=== PATIENT | female | born 1960 ===

== ENCOUNTER 2020-09-01 10:00 | Outpatient (REF) | payer OTHER, SELFPAY ==
[2020-09-01 12:45] LABS: MANUAL DIFF FLAG NO
[2020-09-01 12:51] LABS: Basophils Absolute Auto 0.1 X10*3/uL (0.0-0.2); Basophils Percent Auto 0.4 % (0-2); Eosinophils Absolute Auto 0.2 X10*3/uL (0.0-0.4); Eosinophils Percent Auto 1.7 % (0-4); Hematocrit 48.3 % (37-47); Hemoglobin 16.2 g/dl (12.0-16.0); Imm Gran Abs Auto 0.07 X10*3/uL (0.00-0.03); Imm Gran Pct Auto 0.6 % (0.0-0.4); Lymphocytes Absolute Auto 3.8 X10*3/uL (1.2-4.9); Lymphocytes Percent Auto 33.6 % (20-40); Mean Corpuscular HGB Conc 33.5 g/dl (31.0-35.0); Mean Corpuscular Hemoglobin 30.1 pg (27.0-33.0); Mean Corpuscular Volume 89.8 fL (80-98); Mean Platelet Volume 9.3 fL (9.4-12.3); Monocytes Absolute Auto 0.7 X10*3/uL (0.1-1.2); Monocytes Percent Auto 6.5 % (2-11); Neutrophils Absolute Auto 6.4 X10*3/uL (2.0-8.3); Neutrophils Percent Auto 57.2 % (45-73); Platelet Count 484 X10*3/uL (160-400); Red Blood Count 5.38 X10*6/uL (4.20-5.50); Red Cell Distribution Width 14.4 % (11.0-16.0); White Blood Count 11.2 X10*3/uL (4.8-10.8)
[2020-09-01 13:18] LABS: Alanine Aminotransferase 11 U/L (0-31); Albumin Level 4.5 g/dL (3.5-5.0); Alkaline Phosphatase 141 U/L (39-117); Anion Gap 14 (12-20); Aspartate Amino Transferase 18 U/L (5-31); Bilirubin Total 0.2 mg/dL (0.0-1.0); Blood Urea Nitrogen 21 mg/dL (9-16); Calcium 10.1 mg/dL (8.4-10.2); Carbon Dioxide 24 mmol/L (22-29); Chloride 106 mmol/L (96-108); Estimated Glomerular Filt Rate > 60; Glucose Random 67 mg/dL (60-115); Potassium 5.2 mmol/L (3.3-5.1); Sodium 139 mmol/L (135-145); Total Protein 7.6 g/dL (6.5-8.0)
== END 2020-09-01 10:01 | disposition home or self-care (01) ==
LOC: HO.LAB 10:00
PROVIDERS: PCP Psychiatry & Neurology Neurology; Visit Provider Anesthesiology
DX: M96.1 Postlaminectomy syndrome, not elsewhere classified (principal); M46.1 Sacroiliitis, not elsewhere classified; M53.3 Sacrococcygeal disorders, not elsewhere classified; G89.4 Chronic pain syndrome; D64.9 Anemia, unspecified; N28.9 Disorder of kidney and ureter, unspecified; Z79.899 Other long term (current) drug therapy
CPT/HCPCS: 36415; 80053; 85025; 99202

== ENCOUNTER 2021-01-23 15:18 | Outpatient (REF) | payer OTHER, SELFPAY | END 2021-01-23 15:19 | disposition home or self-care (01) | LOC: HO.LAB 15:18 | PROVIDERS: Visit Provider Family Medicine | DX: R19.5 Other fecal abnormalities (principal); Z20.822 Contact with and (suspected) exposure to COVID-19 | CPT/HCPCS: U0003; U0005 ==

== ENCOUNTER 2021-07-20 12:58 | Outpatient (REF) | payer OTHER, SELFPAY ==
[2021-07-20 13:33] LABS: MANUAL DIFF FLAG NO
[2021-07-20 13:36] LABS: Basophils Percent Auto 0.5 % (0-2); Eosinophils Absolute Auto 0.2 X10*3/uL (0.0-0.4); Hematocrit 44.9 % (37.0-47.0); Hemoglobin 14.6 g/dl (12.0-16.0); Imm Gran Abs Auto 0.04 X10*3/uL (0.00-0.03); Imm Gran Pct Auto 0.5 % (0.0-0.4); Lymphocytes Absolute Auto 2.7 X10*3/uL (1.2-4.9); Lymphocytes Percent Auto 30.2 % (20-40); Mean Corpuscular HGB Conc 32.5 g/dl (31.0-35.0); Mean Corpuscular Hemoglobin 29.4 pg (27.0-33.0); Mean Corpuscular Volume 90.3 fL (80.0-98.0); Mean Platelet Volume 9.4 fL (9.4-12.3); Monocytes Absolute Auto 0.7 X10*3/uL (0.1-1.2); Monocytes Percent Auto 8.3 % (2-11); Neutrophils Absolute Auto 5.2 x10*3/uL (2.0-8.3); Neutrophils Percent Auto 58.5 % (45-73); Platelet Count 367 X10*3/uL (160-400); Red Blood Count 4.97 X10*6/uL (4.20-5.50); Red Cell Distribution Width 14.5 % (11.0-16.0); White Blood Count 8.8 X10*3/uL (4.8-10.8)
[2021-07-20 14:43] LABS: Alanine Aminotransferase 26 U/L (0-31); Albumin Level 4.3 g/dL (3.5-5.0); Alkaline Phosphatase 129 U/L (39-117); Anion Gap 15 (12-20); Aspartate Amino Transferase 24 U/L (5-31); Bilirubin Total 0.5 mg/dL (0.0-1.0); Blood Urea Nitrogen 13 mg/dL (9-16); Calcium 9.8 mg/dL (8.4-10.2); Carbon Dioxide 24 mmol/L (22-29); Chloride 106 mmol/L (96-108); Estimated Glomerular Filt Rate > 60; Glucose Random 85 mg/dL (60-115); Lipase 9 U/L (8-78); Potassium 4.7 mmol/L (3.3-5.1); Sodium 140 mmol/L (135-145); Total Protein 7.6 g/dL (6.5-8.0)
[2021-07-20 15:03] LABS: TSH reflex Free T4 1.27 uIU/mL (0.32-4.0)
== END 2021-07-20 12:59 | disposition home or self-care (01) ==
LOC: HO.WFDLDS 12:58
PROVIDERS: Visit Provider Family Medicine
DX: Z00.00 Encounter for general adult medical examination without abnormal findings (principal); M54.9 Dorsalgia, unspecified
CPT/HCPCS: 36415; 80053; 83690; 84443; 85025

== ENCOUNTER 2022-12-06 16:18 | Outpatient (AMB) | payer OTHER, SELFPAY ==
[2022-12-06 16:24] VITALS: BP 128/76; PULSE 113; RESP 12; TEMP 36.5; O2SAT 98; BMI 31.1
--- NOTE | 2022-12-06 16:24 | A.OFFPC_ITS ---
Vital Signs 12/06/22 16:24 Height 5 ft 1 in Weight 164 lb 7 oz BMI 31.1 BP 128/76 Blood Pressure Location Lt brachial Position Sitting Respiration 12 Pulse 113 H Pulse Source Pulse Oximeter Temp 97.7 F Temp Source Temporal Artery Scan Pulse Oximetry (%) 98 Oxygen Delivery Method Room Air Intake Visit Reasons: Follow up labs Intake Note: Patient has very limited range of motion due to 2 herniated disks in back. Patient would like something prescribed for her pain. Patient seeing Neuro on 02/01/23. Patient is also followed by Ortho where a scooter was ordered. Electronic Equipment Repairer Required: No Accompanied by: Self / Same As Patient Allergies ketorolac [From Toradol] Allergy (Verified 12/06/22 17:01) unknown meperidine [From Demerol] Allergy (Verified 12/06/22 17:01) unknown penicillin G Allergy (Verified 12/06/22 17:01) Unknown pseudoephedrine [From Sudafed] Allergy (Verified 12/06/22 17:01) unknown tramadol Allergy (Verified 12/06/22 17:01) unknown Medication List - Last Reconciled 12/06/22 by Magalis Burns, IRVING albuterol sulfate 90 mcg/actuation (ProAir HFA) 2 puffs inhalation Q4-6H PRN 30 days cyclobenzaprine 5 mg PO BID PRN 14 days famotidine 40 mg PO DAILY 90 days gabapentin 0 mg PO ipratropium-albuterol 20-100 mcg/actuation (Combivent Respimat) 1 puff inhalation Q6H 30 days levetiracetam (Keppra) 500 mg PO DAILY lorazepam 1 mg PO DAILY PRN omeprazole 40 mg PO DAILY 90 days zinc oxide 13% (Desitin Rapid Relief) 1 appl topical BID-QID PRN 30 days Tobacco use date assessed: 01/06/22 Dental Screening Dental Screen Date: 12/06/22 HPI HPI Comments History of Present Illness Details 62 y/o female presents with c/o chronic lower back pain and right hip pain which radiates to her RLE. She notes that her symptoms worsened after she fell in her bath tub in June,. She states she has been taking Tylenol, NSAIDs, and other OTC remedies without relief. She reports adverse GI symptoms to NSAIDs, including bloating, nausea, and vomiting. She reports h/o of PT and notes she cannot currently do PT d/t severe pain. She notes she has an appointment with a neurosurgeon an [facility] in January. She states she is followed by an orthopedic surgeon at [facility]; her last visit was last month, and she was referred to neurosurgery She notes she is on Gabapentin 300 mg twice daily for RLS. She reports h/o neck, back, right knee, and bilat shoulder surgeries. COUNTS INCLUDE 234 BEDS AT THE [facility] Medical History Chronic pain syndrome Sacroiliac joint dysfunction of left side Sacroiliitis Postlaminectomy syndrome, lumbar Postlaminectomy syndrome, cervical Renal insufficiency Anemia Surgical History Hx of fusion of cervical spine History of knee surgery History of elbow surgery History of shoulder surgery History of carpal tunnel surgery of right wrist History of carpal tunnel surgery of left wrist History of back surgery Family History Sister Kidney stones Hypertension Renal failure Social History Housing: Apartment Patient Tobacco Use Status: Current everyday Tobacco user e-Cigarette/Vaping Use: Never Used Second Hand Smoke Exposure: No service: No Current occupational status: retired Current occupational exposures/hazards: No Cognitive needs: No Hearing needs: No Vision needs: No Questionnaire ISRAEL-7 AMB Questionnaire ISRAEL-7 Date ISRAEL - 7 assessed: 01/06/22 Source: Developed by Drs. Bam Rose, Kori Love, Davey Solis and colleagues, with an educational marianela from [employer]. Review of Systems Const Details: Const Denies chills, Denies fatigue, Denies fever(s), Denies headache(s) and Denies weakness ENT Denies dizziness and Denies headache(s) Card Denies chest pain, Denies lightheadedness, Denies dyspnea and Denies other (Palpitations) Resp Denies cough, Denies dyspnea, Denies wheezing and Denies other ( shortness of breath) GI Denies abdominal pain, Denies melena, Denies hematochezia, Denies change in bowel habits, Denies dyspepsia and Denies nausea Denies hematuria and Denies dysuria Musc Reports back and right hip pain, Reports abnormal gait, Denies numbness and Denies tingling Skin/Breast Denies rash, Denies unusual bruising and Denies wounds Neuro Reports abnormal gait, Denies dizziness, Denies headache(s), Denies memory loss, Denies numbness, Denies Sensory deficit (Neuro), Denies tingling and Denies weakness Psych Denies anxiety, Denies depression, Denies memory loss Endo Denies cold intolerance, Denies fatigue, Denies heat intolerance, Denies polydipsia and Denies polyuria Aller/Immun Denies wheezing Physical exam (Primary Care) Vital Signs: Last Vital Signs Temp 97.7 F 12/06/22 16:24 Pulse 113 H 12/06/22 16:24 Resp 12 12/06/22 16:24 BP 128/76 12/06/22 16:24 Pulse Ox 98 12/06/22 16:24 Oxygen Delivery Method Room Air 12/06/22 16:24 BMI result Body Mass Index 31.1 Tobacco/Smoking Status: Tobacco use Status Tobacco use date assessed 01/06/22 12/06/22 16:24 Patient Tobacco Use Status Current everyday Tobacco 12/06/22 16:24 e-Cigarette/Vaping Use Never Used 12/06/22 16:24 Const Other: General: no acute distress and well developed Nutritional Appearance: well nourished Orientation/consciousness: patient oriented x3 HENMT Head: Yes normocephalic and Yes atraumatic Eyes General: appearance normal, both eyes and all related structures Pupils: Equal, round and reactive pupils present EOM: EOMs intact bilaterally Resp Effort & Inspection: normal respiratory effort Auscultation: clear to auscultation bilaterally Cardio Rate: regular rate Rhythm: regular rhythm Heart sounds: S1 normal heart sound present, S2 normal heart sound present, no gallops, no murmurs and no rubs GI Palpation (GI): No Abdominal aortic bruit present, Soft to palpation, nontender, No hepatosplenomegaly present and No Rebound tenderness present Auscultation: normal bowel sounds General: Yes no CVA tenderness Back/Spine/Pelvis Back: no CVA tenderness Cervical Spine: cervical ROM normal and No Cervical spine tenderness Thoracic/Lumbar Spine: thoraco-lumbar ROM normal, pain with thoraco-lumbar ROM, thoracic spinal tenderness andlumbar spinal tenderness Extrem General: Yes normal to inspection, No edema and No calf tendernes Positive right straight leg raise Skin General: warm and dry. Normal skin color. Normal skin turgor Lesions: no lesions Rashes: no rashes Trauma: no lacerations or abrasions Wounds: no wounds Nails: normal Neuro General: patient oriented x3, unsteady gait and no focal neuro deficit Cranial nerves: Yes Equal, round and reactive pupils present Cognition (Neuro): normal cognition Gait exam (Neuro): Normal gait present Sensory Exam: No Sensory deficit (Neuro) Psych Appearance: grossly normal Affect: normal affect Attitude: cooperative Thought process: Normal thought process present Assessment and Plan Assessment & Plan (1) Chronic pain syndrome: Code(s): G89.4 - Chronic pain syndrome Plan: Reports chronic lower back pain and right hip pain which radiates to her RLE. She notes that her symptoms worsened after she fell in her bath tub in June, Thoracic and lumbar spine tenderness Positive right straight leg raise Gait is unsteady Review of recent x-ray of the hip from [facility] revealed worsening arthritic changes of the head and recent MRI revealed significant degenerative changes low L3 to L4 Prednisone ordered. Take as prescribed Declines gabapentin dose increased to 600 mg twice a day for possible sciatica The use of cane or walker recommended for ambulation. She declines an order assistive devices and notes she would not use them Advised to continue to follow-up with orthopedic as planned Follow-up with Neurosurgery as scheduled Follow-up with PCP in 2-4 weeks or return sooner with worsening or new symptoms She verbalized understanding and agreed with treatment plan. Medications: New prednisone 20 mg PO DAILY 5 days 5 tabs 0RF Changed From levetiracetam (Keppra) 500 mg PO Q12H 60 tabs 4RF G40.909 - Epilepsy, unspecified, not intractable, without status epilepticus To levetiracetam (Keppra) 500 mg PO DAILY G40.909 - Epilepsy, unspecified, not intractable, without status epilepticus Discontinued cyclobenzaprine Discontinued Reason: Doctor's Order 5 mg PO BID 14 days PRN 28 tabs 0RF muscle spasm M54.9 - Dorsalgia, unspecified Coding Level of Care Code Est Pt Level 3 (65235) Diagnoses Chronic pain syndrome G89.4
== END 2022-12-06 17:32 | disposition home or self-care (01) ==
PROVIDERS: PCP Family Medicine; Visit Provider Nurse Practitioner Family
DX: G89.4 Chronic pain syndrome (principal)
CPT/HCPCS: 99214

== ENCOUNTER 2024-12-03 13:38 | Outpatient (REF) | payer MEDICAID, SELFPAY ==
--- NOTE | ~2024-12-03 | MM_ITS ---
EXAMINATION(S): 1. MM DIAGNOSTIC DIGITAL BREAST TOMOSYNTHESIS, BILATERAL 2. Targeted ultrasound of the left breast CLINICAL INFORMATION: Left breast lump in the lower inner quadrant COMPARISON: None. This is a baseline study. TECHNIQUE: Digital breast tomosynthesis is performed in both the mediolateral oblique and craniocaudal views along with computer-aided detection (CAD). Synthesized 2D images are generated from the tomosynthesis. FINDINGS: BREAST COMPOSITION: There are scattered areas of fibroglandular density. RIGHT BREAST: No significant masses, suspicious calcifications or other abnormalities are seen. LEFT BREAST: No significant masses, suspicious calcifications or other abnormalities are seen. In particular, no suspicious mammographic findings adjacent to the skin BB marker placed in the lower inner quadrant. Targeted ultrasound of the left breast was performed at the location of the palpable concern as indicated by the patient. The survey throughout the lower inner quadrant did not reveal suspicious sonographic findings. MM/MM tomosynthesis diagnostic BI IMPRESSION: RIGHT BREAST: Negative, no mammographic evidence of malignancy. Normal interval follow-up is recommended in 12 months. LEFT BREAST: Negative, no evidence of malignancy. In particular, no suspicious findings to accounts for patient's palpable concern. Clinical follow-up is recommended. Otherwise, normal interval follow-up mammogram is recommended in 12 months. ASSESSMENT: BI-RADS: Category 1: Negative RECOMMENDATION: 1. Patient should be managed based on the clinical impression. 2. Otherwise, routine annual screening mammography. Results were provided to the patient at time of visit by the technologist. This patient's information was entered into a reminder system with a target due date for their next mammogram. Electronically signed by: Cori Noriega MD 12/03/2024 04:06 PM EDT
--- OUTSIDE RECORDS SUMMARY | 2024-12-03 15:16 | XMS_ITS | Encounter Summary ---
Author Organization [employer] Address [address] [place] [address] Care Team Providers Care Area Manager Name Role Phone Sarahy Marcelo DO Primary Care Provider [phone] Reason for Visit * Reason Comments Med Refill Encounter Details Date Type Department Care Team (Late st Contact Info) Description 07/29/2023 Refill [facility] MEDICAL [address] [place], [place] [id number] Sarahy Marcelo DO [address] [place] [address] Chronic bilateral low back pain with bilateral sciatica worse on right side Social History Tobacco Use Types Packs/Day Years Used Date Smoking Tobacco: Every Day Cigarettes Passive Smoke Exposure: Current Smokeless Tobacco: Never Alcohol Use Standard Drinks/Week Comments Never 0 (1 standard drink = 0.6 oz pur e alcohol) Alcohol Answer Date Recorded How often do you have a drink containing alcohol ? 0 01/31/2023 How many drinks containing a lcohol do you have on a typical day when you are drinking? 0 01/31/2023 How often do you have six or more drinks on one occasion? 0 01/31/2023 Housing Stability Answer Date Recorded What is your housing situation today? I have anne-marie means 01/13/[address] you li ve. Do you have problems with any of the following? None of the above 01/13/2023 Food Insecurity Answer Date Recorded Within the past 12 months, y ou worried that your food would run out before you got money to buy more: Never True 01/13/2023 Within the past 12 months,th e food you bought just didn't last and you didn't have enough money to get more: Never True 11/2022 Transportation Answer Date Recorded In the past 12 months, has l ack of transportation kept you from medical appts, meetings, work or from getting things needed for daily living? No 01/13/2023 Intimate Partner Violence Answer Date R ecorded Within the last year, have y ou been afraid of your partner or ex-partner? 2 01/31/2023 Within the last year, have y ou been humiliated or emotionally abused in other ways by your partner or ex-partner? 2 Within the last year, have y ou been kicked, hit, slapped, or otherwise physically hurt by your partner or ex-partner? 2 01/31/2023 Within the last year, have y ou been raped or forced to have any kind of sexual activity by your partner or ex-partner? 2 01/31/2023 Utilities Answer Date Recorded In the past 12 months, has t he electric, gas, oil or water company threatened to shut off services in your home? No 01/13/2023 Depression Answer Date Recorded Patient Health Questionnaire-2 Score 0 01/13/2023 Education Answer Date Recorded What is the highest level of school you have completed or the highest degree you have received? 9th grade 05/16/2023 Comments Unknown Sex and Gender Information Value Date Recorded Sex Assigned at Female 12/22/2022 10:09 AM EDT Legal Sex Female 10:09 AM EDT Gender Identity Female 12/22/2022 10:09 AM EDT Sexual Orientation Straight 12/22/2022 10 :09 AM EDT Occupation Industry Job Start Date Job End Date Disability Not on file Not on file Not on file documented as of this encounter Miscellaneous Notes * Telephone Encounter - Sarahy Marcelo DO - 07/29/2023 2:03 PM EDT Duplicate RX - already sent on different TE * Telephone Encounter - Prieto Sosa - 07/29/2023 11:35 AM EDT Refill oxyCODONE (Roxicodone) 5 MG immediate release tablet Masspat Last fill Date:07/02/23 Last OV:07/02/23 Next OV:01/26/24 Last UTOX:01/13/23 CSA Date:01/13/23 DNF Date:08/01/23 documented in this encounter Plan of Treatment Upcoming Encounters Date Type Department Care Team (Late st Contact Info) Description 01/17/2025 11:15 AM EST Office Visit [facility] MEDICAL [address] [place] [address] Sarahy Marcelo DO [address] [place] [address] documented as of this encounter Visit Diagnoses Diagnosis Chronic bilateral low back pain with bilateral sciatica worse on right side documented in this encounter Care Teams Area Manager Relationship Specialty Start Date End Date Sarahy Marcelo DO [address] [place] [address] PCP - General Family Medicine 12/28/22 documented as of this encounter
--- OUTSIDE RECORDS SUMMARY | 2024-12-03 15:16 | XMS_ITS | Encounter Summary ---
Author Organization [employer] Address [address] [place] [address] Care Team Providers Care Supervisor Dairy Sanitation Name Role Phone Sarahy Marcelo DO Primary Care Provider [phone] Reason for Visit * Reason Comments Med Refill Encounter Details Date Type Department Care Team (Late st Contact Info) Description 12/03/2024 Refill [facility] MED[facility] [address] [place] [address] Sarahy Marcelo DO [address] [place] [address] Chronic bilateral low back pain with bilateral sciatica worse on right side; Chronic left shoulder pain Social History Tobacco Use Types Packs/Day Years Used Date Smoking Tobacco: Every Day Cigarettes Passive Smoke Exposure: Current Smokeless Tobacco: Never Alcohol Use Standard Drinks/Week Comments Not Currently 0 (1 standard drink = 0.6 oz [...] is your housing situation today? I have anne-marierudy means 01/26/[address] you li ve. Do you have problems with any of the following? None of the above 01/26/2024 Food Insecurity Answer Date Recorded Within the past 12 months, y ou worried that your food would run out before you got money to buy more: Never True 01/26/2024 Within the past 12 months,th e food you bought just didn't last and you didn't have enough money to get more: Never True Transportation Answer Date Recorded In the past 12 months, has l ack of transportation kept you from medical appts, meetings, work or from getting things needed for daily living? No 01/26/2024 Intimate Partner Violence Answer Date R ecorded [...] shut off services in your home? No 01/26/2024 Depression Answer Date Recorded Patient Health Questionnaire-2 Score 0 01/26/2024 Internet Access Answer Date Recorded Internet Access Q1 Yes 01/26/2024 Internet Access Q2 Not on file 01/26/2024 Education Answer Date Recorded What is the highest level of school you have completed or the highest degree you have received? 9th grade 05/16/2023 Comments No Sex and Gender Information Value Date Recorded [...] encounter Miscellaneous Notes * Telephone Encounter - Prieto Sosa - 12/03/2024 12:36 PM EDT Refill Oxycodone 10 mg tab MassPat Last Fill Date:11/03/24 MassPat Sold Date:11/03/24 #180/30 d Last OV:08/03/24 Next OV:01/17/25 CSA Date:01/26/24 Last Utox:01/26/24 DNF Date: due today documented in this encounter Plan of Treatment Upcoming Encounters Date Type Department Care Team (Late st Contact Info) Description 01/17/2025 11:15 AM EST Office Visit [facility] MED[facility] [address] [place] [address] Sarahy Marcelo DO [address] [place] [address] documented as of this encounter Visit Diagnoses Diagnosis Chronic bilateral low back pain with bilateral sciatica worse on right side Chronic left shoulder pain Pain in joint, shoulder region documented in this encounter Care Teams Supervisor Dairy Sanitation Relationship Specialty Start Date End Date Sarahy Marcelo DO [address] [place] [address] PCP - General Family Medicine 12/28/22 documented as of this encounter
--- OUTSIDE RECORDS SUMMARY | 2024-12-03 15:16 | XMS_ITS | Clinical Summary ---
Author Organization [employer] Address [address] [facility] [address] [place] [address] Care Team Providers Care Associate Account Manager Name Role Phone Sarahy Marcelo Primary Care Provider [phone] Allergies Active Allergy Reactions Criticality Noted Date Comments Aspirin Hives Medium 08/22/2013 Bee Venom 01/13/2023 Ketorolac Low 01/13/2023 gi upset Meperidine Low 01/13/2023 vomiting Penicillins Anaphylaxis High 08/22/2013 gi upset Greenwood Extract 01/13/2023 Sulfa Antibiotics Anaphylaxis High 08/22/2013 Tramadol Vomiting Low 01/13/2023 Tramadol-Acetaminophen Vomiting Low 01/13/2023 Medications LORazepam (Ativan) 1 MG tablet Take 1 tablet by mouth 2 times daily. Active albuterol (2.5 MG/3ML) 0.083% nebulizer solutionIndications :Subacute cough,Mild persistent asthma without complication,Smokin g history Take 3 mL (2.5 mg) by nebulization if needed in the morning, at noon, in the evening, and at bedtime for wheezing or shortness of breath. 18 mL Active Respiratory Therapy Supplies (Nebulizer/Tubing/M outhpiece) kitIndications:Dysp saumya Use with prescribed medication. Active Additional Information Patient not taking.Reported on 05/04/2024 Ventolin HFA 108 (90 Base) MCG/ACT inhalerIndications: Mild persistent asthma without complication INHALE TWO PUFFS BY MOUTH EVERY 6 HOURS NEEDED FOR FOR SHORTNESS OF BREATH OR WHEEZING 18 g 1 Active traZODone (Desyrel) 50 MG tablet Take 50 mg by mouth at bedtime. Active naloxone (Narcan) 4 mg/0.1 mL nasal sprayIndications:Ch ronic, continuous use of opioids INSTILL 1 SPRAY INTO AFFECTED NOSTRIL(S) IF NEEDED FOR OPIOID REVERSAL. MAY REPEAT EVERY 2 TO 3 MINUTES IF NEEDED, ALTERNATING NOSTRILS, UNTIL MEDICAL ASSISTANCE BECOMES AVAILABLE 2 each Active Additional Information Patient not taking.Reported on 05/04/2024 senna-docusate sodium (Senokot-S) 8.6-50 MG tabletIndications:O pioid-induced constipation Take 1 tablet by mouth if needed each day for constipation. 30 tablet 11 2024 Active polyethylene glycol, PEG, 3350 (Glycolax, Miralax) powderIndications:O pioid-induced constipation Take 17 g by mouth Once per day. 510 g 11 Active lidocaine (Lidoderm) 5 % patchIndications:Pr imary osteoarthritis of hip, unspecified laterality,Chronic left shoulder pain Apply 2 patches topically Once per day. Apply to hip and shoulder 12 hours per day, remove for 12 hours. 60 patch 11 2024 Active busPIRone (Buspar) 7.5 MG tablet Take 1 tablet by mouth 2 times daily. Active ipratropium-albuter ol (Combivent Respimat) 20-100 MCG/ACT inhalerIndications: Mild persistent asthma without complication Inhale 1 puff in the morning, at noon, in the evening, and at bedtime. 4 g 11 Active omeprazole (PriLOSEC) [address] capsuleIndications: Hiatal hernia with gastroesophageal reflux Do not crush or chew.TAKE 1 CAPSULE BY MOUTH BEFORE BREAKFAST AND BEFORE EVENING MEAL ; DO NOT CRUSH OR CHEW 180 capsule Active levETIRAcetam (Keppra) 500 MG tabletIndications:S eizures (CMS/HCC) (HCC) Take 1 tablet (500 mg) by mouth 2 times daily. Once in the morning and once in the evening 180 tablet 1 Active atorvastatin (Lipitor) 40 MG tabletIndications:H ypertriglyceridemia Take 1 tablet (40 mg) by mouth in the morning. 90 tablet 3 Active Nurtec 75 MG tablet dispersibleIndicati ons:Migraine without aura and without status migrainosus, not intractable Take 1 tablet (75 mg) by mouth if needed each day (headache). 16 tablet 025 Active ondansetron ODT (Zofran-ODT) 4 MG disintegrating tablet DISSOLVE TWO TABLETS BY MOUTH EVERY 8 HOURS NEEDED FOR NAUSEA AND VOMITING 20 tablet 1 025 Active tiZANidine (Zanaflex) 4 MG tabletIndications:C hronic bilateral low back pain with bilateral sciatica TAKE 1 TO 2 TABLETS BY MOUTH EVERY 6 HOURS NEEDED FOR MUSCLE SPASMS 180 tablet 1 025 Active butalbital-acetamin ophen-caffeine 50-325-40 MG tabletIndications:M igraine without aura and without status migrainosus, not intractable TAKE ONE TABLET BY MOUTH EVERY 6 HOURS NEEDED FOR MIGRAINE. DO NOT USE MORE THAN 2 TABLETS PER DAY OR 30 TABLETS PER MONTH. 15 tablet 1 025 Active oxyCODONE (Roxicodone) 10 MG immediate release tabletIndications:C hronic bilateral low back pain with bilateral sciatica,Chronic left shoulder pain TAKE 2 TABLETS BY MOUTH 3 TIMES DAILY 180 tablet 025 Active ondansetron ODT (Zofran-ODT) 4 MG disintegrating tablet DISSOLVE TWO TABLETS BY MOUTH EVERY 8 HOURS NEEDED FOR NAUSEA & VOMITING 20 tablet 1 025 2024 Discontinued butalbital-acetamin ophen-caffeine 50-325-40 MG tabletIndications:M igraine without aura and without status migrainosus, not intractable TAKE ONE TABLET BY MOUTH EVERY 6 HOURS NEEDED FOR MIGRAINE. NO MORE THAN 2 TABLETS PER DAY, 30 TABLETS PER MONTH 15 tablet 1 025 2024 Discontinued tiZANidine (Zanaflex) 4 MG tabletIndications:C hronic bilateral low back pain with bilateral sciatica TAKE 1 TO 2 TABLETS BY MOUTH EVERY 6 HOURS NEEDED FOR MUSCLE SPASMS 180 tablet 1 025 2024 Discontinued oxyCODONE (Roxicodone) 10 MG immediate release tabletIndications:C hronic bilateral low back pain with bilateral sciatica,Chronic left shoulder pain Take 2 tablets (20 mg) by mouth 3 times daily. Do not start before November 03, 2024. 180 tablet 025 2024 Discontinued Active Problems Problem Noted Date Diagnosed Date Smoking history 08/03/2023 Migraine without aura and wi thout status migrainosus, not intractable 07/24/2023 Assessment & Plan (07/24/2023 1:33 PM EDT): Pt due for refill, PDMP reviewed, RX sent Nonintractable headache 05/16/2023 Assessment & Plan (05/16/2023 3:53 PM EDT): Reported migraine disorder with poor tolerance of triptan. Previously used Fioricet with good efficacy. Counseled on risk of sedation if combined with other sedating medications (oxycodone, lorazepam) and advised to separate by a few hours when taking. Subacute cough 03/17/2023 Assessment & Plan (03/17/2023 9:08 AM EST): Suspect related to decrease in marijuana smoking as well as dry air this season. Advised that similarly to tobacco quitters cough this will typically improve with time as the lungs and airways heal. Follow up if worsening or not improving History of traumatic brain injury 02/15/2023 Hyperkalemia 02/06/2023 Assessment & Plan (02/06/2023 5:09 PM EST): Mild/moderate hyperkalemia 5.7 -> 5.6 on labs Jan 2023. Suspect due to NSAID use vs hemolysis of sample. Advised to stop NSAIDs and recheck potassium in 1-2 weeks with no tourniquet or fist pumping. Hypercholesterolemia 01/19/2023 Overview (02/06/2023): The 10-year ASCVD risk score (Reji DK, et al., 2019) is: 12.9% Values used to calculate the score: Age: 62 years Sex: Female Is Non- : No Diabetic: No Tobacco smoker: Yes Systolic Blood Pressure: 145 mmHg Is BP treated: No HDL Cholesterol: 43 MG/DL Total Cholesterol: 236 MG/DL Assessment & Plan (02/06/2023 5:18 PM EST): Educated patient on high cholesterol and heart disease risk, start atorvastatin 40 mg daily Seizures (CMS/HCC) 01/13/2023 01/13/2023 Assessment & Plan (01/19/2023 10:37 PM EST): Stable, continue levetiracetam Anxiety 01/13/2023 01/13/2023 Overview (01/19/2023): Following with outside provider. On Lorazepam 2 mg/day and Trazodone 100mg nightly for sleep. Spinal stenosis 01/13/2023 01/13/2023 Assessment & Plan (05/16/2023 3:54 PM EDT): Stable on current pain regimen. Has difficulty with ambulation and as a result would benefit from mobility scooter to enable her to better move about the home and maintain her independence. Lumbar radiculopathy 01/13/2023 Chronic bilateral low back p ain with bilateral sciatica worse on right side 01/13/2023 Overview (03/17/2023): Stable on oxycodone 10 mg TID (40 MME/day) Tizanidine 4mg q6h prn Naloxone prescribed 02/15/23 PDMP: 03/17/23 UDS: 01/13/23 CSA: 01/13/23 Assessment & Plan (07/24/2023 1:34 PM EDT): Stable on oxycodone 10 mg TID (40 MME/day) Tizanidine 4mg q6h prn Naloxone prescribed 02/15/23 PDMP: today UDS: 01/13/23 CSA: 01/13/23 Assessment & Plan (03/17/2023 9:06 AM EST): Stable on oxycodone 10mg TID (40 MME/day) and tizanidine 4mg q6h prn. Continue current regimen Follow up 2 months or prn Assessment & Plan (03/07/2023 3:04 PM EST): Stable on oxycodone 10 mg TID Prescribed Soma by outside provider; discussed risks of combination with opioid Naloxone prescribed today 02/15/23 PDMP: 01/31/23 UDS: 01/13/23 CSA: 01/13/23 Assessment & Plan (02/06/2023 5:11 PM EST): Continue oxycodone 10 mg TID prn Using NSAIDs a lot lately; advised to stop this d/t hyperkalemia and stomach upset Assessment & Plan (01/19/2023 10:35 PM EST): MRI reviewed. Pending upcoming appt with neurosurgery. Increase oxycodone to 10 mg as needed, advised to not take with lorazepam d/t overdose risk. Hiatal hernia with gastroesophageal reflux 01/13 Assessment & Plan (02/06/2023 5:05 PM EST): Negative H pylori. Continue Compazine prn nausea/vomiting and daily PPI Assessment & Plan (01/19/2023 10:38 PM EST): Along with new LUQ pain which may reflect gastritis/PUD. Replace H2 rosa with PPI until seen for at least 8 weeks or until seen by gastroenterology. Compazine prn nausea/vomiting Mild persistent asthma without complication 11/2022 Assessment & Plan (01/19/2023 10:36 PM EST): Stable, continue inhalers. Resolved Problems Problem Noted Date Diagnosed Date Resolved Date Urinary tract infection symptoms 01/19/2023 03/07/2023 Assessment & Plan (01/19/2023 10:41 PM EST): POC UA wnl, but given strong symptoms will given empiric ABX pending culture Encounters Date Type Department Care Team Description 12/03/2024 [facility] [address] [place] [id number] Sarahy Marcelo, Chronic bilateral low back pain with bilateral sciatica worse on right side; Chronic left shoulder pain 11/24/[address] [place] [address] Sarahy Marcelo, DO Migraine without aura and without status migrainosus, not intractable 11/19/[address] [place] [address] Sarahy Marcelo, DO Chronic bilateral low back pain with bilateral sciatica worse on right side 11/08/[address] [place] [address] Sarahy Marcelo, DO 10/31/[address] [place] [address] Sarahy Marcelo, DO mammogram and US orders 10/31/[address] [place] [address] Sarahy Marcelo, DO Chronic bilateral low back pain with bilateral sciatica worse on right side; Chronic left shoulder pain 10/29/[address] [place] [address] Sarahy Marcelo, DO 10/11/[address] [place] [address] Sarahy Marcelo, DO Cologuard Update 10/03/[address] [place] [address] Cleo Miranda MD Chronic bilateral low back pain with bilateral sciatica worse on right side; Chronic left shoulder pain 10/01/[address] [place] [address] Sarahy Marcelo, DO Chronic bilateral low back pain with bilateral sciatica worse on right side 09/28/[address] [place] [address] Sarahy Marcelo, DO Migraine without aura and without status migrainosus, not intractable (Primary Dx) from Last 3 Months Immunizations Immunization Administration Dates Next Due INFLUENZA INJECTABLE QUADRIV ALANT CCIIV4 MDCK Multi-dose vial 07/02/2023 Influenza Injectable Quadriv alant Preservative Free IIV4 MDCK 12/02/2021 Influenza Whole 11/19/2018 Influenza injectable quadriv alent preservative free 11/19/2020,01/02/2018,01/09/2016 Influenza, seasonal, injecta ble, preservative free 10/21/2014 Pneumococcal Polysaccharide PPSV23 09/22/2018, RSV Bivalent 07/02/2023 Tdap 03/10/2016 Social History Tobacco Use Types Packs/Day Years Used Date Smoking Tobacco: Every Day Cigarettes Passive Smoke Exposure: Current Smokeless Tobacco: Never Tobacco Cessation:Ready to Q uit: No; Counseling Given: Yes Alcohol Use Standard Drinks/Week Comments Not Currently [...] housing situation today? I have anne-marie means 01/26/[address] you [...] file Not on file Not on file Last Filed Vital Signs Vital Sign Reading Time Taken Comments Blood Pressure 123/86 08/03/2024 10:58 AM EDT Pulse 93 08/03/2024 10:58 AM EDT Temperature 37.1 C (98.7 F) 08/03/2024 10:58 AM EDT Respiratory Rate 16 08/03/2024 10:58 AM EDT Oxygen Saturation 97% 08/03/2024 10:58 AM EDT Inhaled Oxygen Concentration - - Weight 60.8 kg (134 lb) 08/03/2024 10:58 AM EDT Height 157.5 cm (5' 2 ) 05/04/2024 2:42 PM EST Body Mass Index 24.51 05/04/2024 2:42 PM EST Plan of Treatment Upcoming Encounters Date Type Department Care Team (Late st Contact Info) Description 01/17/2025 11:15 AM EST Office Visit [facility] [address] [place] [address] Sarahy Marcelo DO [address] [place] [address] Health Maintenance Due Date Last Done Comments CT Colonography 1960 Colonoscopy 1960 Colorectal Cancer Screening 1960 FIT DNA/Cologuard 1960 FIT 1960 FOBT 1960 HIV Screening 1960 Sigmoidoscopy 1960 Alcohol/Substance Use Screening 1972 Hepatitis C Screening 1978 Pap Smear 1981 Cervical Cancer Screening 1990 HPV/Cotest 1990 Mammogram 2000 Zoster Vaccines (1 of 2) 2010 Influenza Vaccine (#1) 2024 , 07/02/2023, 12/02/2021, Additional history exists Depression Screening 01/25/2025 01/26/2024, 01/26/20 24 Disability Screening 01/25/2025 01/26/2024 SDOH Screening 01/25/2025 01/26/2024 Tobacco Screening 05/04/2025 05/04/2024 DTaP/Tdap/Td Vaccines (2 - Td or Tdap) 03/10/2026 03/10/2016 Lipid Panel 08/03/2029 08/03/2024, 01/06, 01/13/2023 RSV Patients and Patients Aged 60 years or older Completed 07/02/2023 Pneumococcal Vaccine: 50+ Years Completed 10/27/2023, 09/22/2018, 05/08/2014 COVID-19 Vaccine Completed 12/24/2023, , 01/06/2023 HIB Vaccines Aged Out No longer eligi ble based on patient's age to complete this topic HPV Vaccines Aged Out No longer eligi ble based on patient's age to complete this topic Hepatitis A Vaccines Aged Out No long er eligible based on patient's age to complete this topic Hepatitis B Vaccines Aged Out No long er eligible based on patient's age to complete this topic IPV Vaccines Aged Out No longer eligi ble based on patient's age to complete this topic Meningococcal B Vaccine Aged Out No l onger eligible based on patient's age to complete this topic Meningococcal Vaccine Aged Out No crystal griffin eligible based on patient's age to complete this topic RSV under 20 months Aged Out No longe r eligible based on patient's age to complete this topic Rotavirus Vaccines Aged Out No longer eligible based on patient's age to complete this topic Procedures Procedure Name Priority Date/Time Associated Diagnosis Comments LIPID PANEL, STANDARD Routine 08/03/2024 12:36 PM EDT Hypertriglyceridemi a from Last 3 Months or Most Recently Relevant to Health Maintenance Results * Lipid Panel, Standard (08/03/2024 12:36 PM EDT) Cholesterol, Total 110 100 - 199 mg/dL [facility] Triglycerides 129 0 - 149 mg/dL [facility] 1 HDL Cholesterol 44 >39 mg/dL [facility] 1 VLDL Cholesterol Ehsan 23 5 - 40 mg/dL [facility] 1 LDL Chol Calc (NIH) 43 0 - 99 mg/dL [facility] 1 Blood Venous blood specimen / Unknown 08/03/2024 12:36 PM EDT 08/03/2024 Narrative [facility] 1 - 08/04/2024 6:05 AM EDT Performed at: 01 - [facility] [address] [id number] Superintendent House: Brigid Goodson MD, Phone: [phone] Sarahy Marcelo DO LAB BLOOD ORDERABLES Final Res ult [facility] 1 from Last 3 Months or Most Recently Relevant to Health Maintenance Insurance [employer] C3 Care Teams Associate Account Manager Relationship Specialty Start Date End Date Sarahy Marcelo DO [address] [place] [id number] PCP - General Family Medicine 12/28/22
--- OUTSIDE RECORDS SUMMARY | 2024-12-03 15:16 | XMS_ITS | Encounter Summary ---
Author Organization [employer] Address [address] [facility] [address] [place] [address] Care Team Providers Care Ship Wirer Name Role Phone Sarahy Marcelo DO Primary Care Provider Reason for Visit * Reason Comments Med Refill Encounter Details Date Type Department Care Team (Late st Contact Info) Description 08/22/2024 Refill [facility] [address] [place] [address] Sarahy Marcelo DO [address] [place] [address] Chronic bilateral low back pain with bilateral [...] encounter Miscellaneous Notes * Telephone Encounter - ROBYN Lugo - 08/22/2024 10:42 AM EDT Written Script:08/03/24 [facility] Last Fill Date:08/05/24 [facility] Sold Date:08/05/24 Last OV:08/03/24 Next OV:01/17/25 CSA Date:01/26/24 Last Utox:01/26/24 DNF Date: 09/04/24 documented in this encounter Plan of Treatment Upcoming Encounters Date Type Department Care Team (Late st Contact Info) Description 01/17/2025 11:15 AM EST Office Visit [facility] [address] [place] [address] Sarahy Marcelo DO [address] [place] [address] documented as of this encounter Visit Diagnoses Diagnosis Chronic bilateral low back pain with bilateral sciatica worse on right side Chronic left shoulder pain Pain in joint, shoulder region documented in this encounter Care Teams Ship Wirer Relationship Specialty Start Date End Date Sarahy Marcelo DO [address] [place] [address] PCP - General Family Medicine 12/28/22 documented as of this encounter
== END 2024-12-03 13:39 | disposition home or self-care (01) ==
LOC: HO.MAMMO 13:38
PROVIDERS: PCP Family Medicine; Visit Provider Family Medicine
DX: N63.24 Unspecified lump in the left breast, lower inner quadrant (principal)
CPT/HCPCS: 76642; 77062; 77066

== ENCOUNTER → 2024-12-03 14:00 | Outpatient (BNV) | payer MEDICAID, SELFPAY | PROVIDERS: PCP Family Medicine; Visit Provider Radiology Body Imaging | DX: N63.24 Unspecified lump in the left breast, lower inner quadrant (principal) | CPT/HCPCS: 76642; 77062; 77066 ==